=== PATIENT | male | born 1960 | race Caucasian/White ===

== ENCOUNTER 2017-06-26 09:24 | Day surgery (SDC) | payer OTHER ==
[~2017-06-26] VITALS: Ht 175.3 cm; Wt 101.2 kg
[~2017-06-26 09:24] MED LIST: ASPI81CH; ATOR10 PO; Aspir 8181 MG PO; CELE200 PO; CHOLESTYRAMINE; CYCL10 PO; FISH OIL 1,0001 EAC1; Fenofibrate134 MG PO; GABA300 PO; GLUCOSAMINE1000 MG; Garlic Oil1000 MG; LEVO-T137 MCG; LEVSOD100 PO; LEVSOD25 PO; LOVA20 PO; Motion Sickness25 M1 PO; NIAC500ER; Naprosyn500 MG PO; PANT40 PO; TRAM50 PO; VITAMIN D5000 UNI1; Zofran Odt8 MG SL
== END 2017-06-26 12:00 | disposition home or self-care (01) ==
LOC: ORSCSDS 09:24
PROVIDERS: Orthopaedic Surgery
PROC: 01N54ZZ Release Median Nerve, Percutaneous Endoscopic Approach (ICD-10-PCS; principal; 2017-06-26 11:00)
DX: G56.01 Carpal tunnel syndrome, right upper limb (principal); E03.9 Hypothyroidism, unspecified; E78.5 Hyperlipidemia, unspecified; Z87.891 Personal history of nicotine dependence; Z79.899 Other long term (current) drug therapy
CPT/HCPCS: J0171; J0690; J2250; J7120

== ENCOUNTER → 2023-11-18 | Outpatient (CLI) | payer OTHER ==
[~2023-11-18] MED LIST changes: +Cipro500 MG PO; +DOXA4; +Flagyl500 MG PO; -LEVO-T137 MCG; +LEVO-T137 MCG PO; +ONDANSETRON ODT 8MG; +PROM25 PO; +Roxicodone5 MG PO
[2023-11-18 17:03] LABS: Source, Urine Clean Catch
[2023-11-18 18:11] LABS: Appearance, Urine Clear (Clear); Bilirubin, Urine Neg (Neg); Blood, Urine Neg (Neg); Color, Urine Yellow (P-Yellow); Glucose Qualitative, Urine Neg (Neg); Ketones, Urine Neg (Neg); Leukocyte Esterase, Urine Neg (Neg); Nitrite, Urine Neg (Neg); Protein, Urine Neg (Neg); Urobilinogen, Urine NORM (Normal)
== END ==
LOC: LAB 17:00 → LAB SHORT 17:00
PROVIDERS: Family Medicine
DX: R82.81 Pyuria (principal)
CPT/HCPCS: 81003

== ENCOUNTER 2025-03-20 06:16 | Emergency (ER) | payer MEDICARE, OTHER ==
[~2025-03-20] VITALS: Ht 175.3 cm; Wt 99.8 kg
[2025-03-20 06:36] VITALS: BP 148/73
[2025-03-20 07:03] LABS: Source, Urine Clean Catch
[2025-03-20 07:12] LABS: BASOPHILS ABSOLUTE AUTO 0.05 K/mm3 (0.00-0.23); BASOPHILS PERCENT AUTO 1 % (0-2); EOSINOPHILS ABSOLUTE AUTO 0.03 K/mm3 (0.00-0.68); EOSINOPHILS PERCENT AUTO 1 % (0-6); Hematocrit 43.6 % (37.0-53.0); Hemoglobin 16.1 g/dL (13.5-17.5); IMMATURE GRAN ABSOLUTE AUTO 0.01 K/mm3 (0.00-0.10); IMMATURE GRAN PERCENT AUTO 0 % (0-1); LYMPHOCYTES ABSOLUTE AUTO 0.60 K/mm3 (0.84-5.20); LYMPHOCYTES PERCENT AUTO 10 % (21-46); MONOCYTES ABSOLUTE AUTO 0.54 K/mm3 (0.16-1.47); MONOCYTES PERCENT AUTO 9 % (4-13); Mean Corpuscular HGB Conc 36.9 g/dL (31.5-36.5); Mean Corpuscular Volume 89 fL (80-100); NEUTROPHILS ABSOLUTE AUTO 4.62 K/mm3 (1.96-9.15); NEUTROPHILS PERCENT AUTO 79 % (41-73); NRBC ABSOLUTE 0.00 K/mm3 (0.00-0.02); NRBC Auto 0.0 /100 WBC (0.0-0.2); Platelet Count 202 K/mm3 (150-400); RDW Coefficient Variation 12.0 % (11.7-14.2); RDW Standard Deviation 38.8 fL (35.1-46.3)
[2025-03-20 07:16] LABS: Bilirubin, Urine Neg (Neg); Color, Urine Yellow (P-Yellow); Glucose Qualitative, Urine Neg (Neg); Ketones, Urine Neg (Neg); Leukocyte Esterase, Urine Neg (Neg); Protein, Urine Neg (Neg); Specific Gravity, Urine 1.020 (1.003-1.022); Urobilinogen, Urine NORM (Normal)
[2025-03-20 07:24] LABS: Anion Gap 10.0 mmol/L (3-11); Blood Urea Nitrogen 12.0 mg/dL (8-24); CO2, Blood 23.0 mmol/L (21-32); Calcium, Blood 8.8 mg/dL (8.5-10.1); Chloride, Blood 107.0 mmol/L (98-108); Creatinine, Blood 0.78 mg/dL (0.60-1.20); Glucose, Blood 144.0 mg/dL (70-99); Potassium, Blood 3.6 mmol/L (3.5-5.5); Sodium, Blood 136.0 mmol/L (136-145)
== END 2025-03-20 08:22 | disposition home or self-care (01) ==
LOC: ER 06:16
PROVIDERS: Student in an Organized Health Care Education/Training Program
DX: N40.1 Benign prostatic hyperplasia with lower urinary tract symptoms (principal); R33.8 Other retention of urine; E03.9 Hypothyroidism, unspecified; E78.5 Hyperlipidemia, unspecified; Z79.899 Other long term (current) drug therapy; Z88.8 Allergy status to other drugs, medicaments and biological substances
CPT/HCPCS: 51702; 80048; 81003; 85025; 99283

== ENCOUNTER 2025-05-19 08:49 | Day surgery (SDC) | payer MEDICARE, OTHER ==
[~2025-05-19] VITALS: Ht 175.3 cm; Wt 95.4 kg
[2025-05-19] VITALS (22 sets, daily range): BP systolic 113–151; BP diastolic 63–83
[~2025-05-19 08:49] MED LIST changes: +MULTI-VITAMIN1 EAC2 PO
--- NOTE | 2025-05-19 09:20 | NUR ---
Ambulatory in Day Surgery. Catheter in place on admit. History, Chart, Medications and Allergies reviewed before start of procedure. Lungs clear T/O to Auscultation. Patient confirms NPO status and agrees with scheduled surgery. Pre-Op teaching done. Pt verbalizes understanding. Patient States Post-Procedure ride home has been arranged.
--- NOTE | 2025-05-19 10:17 | NUR ---
05/19/25 1017 Natasha Chan CONFIRMED AND REVIEWED H&P, MEDCICATIONS, ALLERGIES, MEDICAL HISTORY, RESPIRATORY HISTORY, VITAL SIGNS, 3-LEAD EKG, CONSENTS, AND PHYSICIAN ORDERS. PATIENT CONFIRMS NPO STATUS AND AGREES WITH SCHEDULED PROCEDURE. MONITOR INTACT WITH CONTINUOUS PULSE OXIMETRY, CAPNOGRAPHY, 3-LEAD EKG, INTERMITTENT BP. SUPPLEMENTAL O2 TO BE TITRATED THROUGHOUT PROCEDURE TO MAINTAIN O2 SATURATION ABOVE 90%. PATIENT DETERMINED TO BE ASA APPROPRIATE FOR PROPOFOL SEDATION PRIOR TO START OF PROCEDURE BY DR. CACERES
--- NOTE | 2025-05-19 10:42 | NUR ---
PT TO DAY SURGERY STEP DOWN FROM COLONOSCOPY. BEDSIDE REPORT RECEIVED. PT IS AWAKE, ALERT AND ORIENTED. HAS NO COMPLAINTS AT THIS TIME. REQUESTING PO FLUIDS.
--- NOTE | 2025-05-19 10:49 | NUR ---
TOLERATING PO FLUIDS WELL. Discharge instructions reviewed with patient. Patient verbalizes understanding. Copy given to patient to take home.
--- NOTE | 2025-05-19 10:58 | NUR ---
Patient up to Ambulate independently. Gait steady. Discharged via wheelchair to private car for ride home.
== END 2025-05-19 10:59 | disposition home or self-care (01) ==
LOC: ORSCMMR 08:49 → ORD 10:00 → ORSCMMR 10:59
PROVIDERS: Internal Medicine Gastroenterology
PROC: 0DBK8ZX Excision of Ascending Colon, Via Natural or Artificial Opening Endoscopic, Diagnostic (ICD-10-PCS; principal; 2025-05-19 10:00)
PROC: 0DBH8ZX Excision of Cecum, Via Natural or Artificial Opening Endoscopic, Diagnostic (ICD-10-PCS; principal; 2025-05-19 10:00)
PROC: 0DBM8ZX Excision of Descending Colon, Via Natural or Artificial Opening Endoscopic, Diagnostic (ICD-10-PCS; principal; 2025-05-19 10:00)
PROC: 0DBN8ZX Excision of Sigmoid Colon, Via Natural or Artificial Opening Endoscopic, Diagnostic (ICD-10-PCS; principal; 2025-05-19 10:00)
DX: Z12.11 Encounter for screening for malignant neoplasm of colon (principal); K63.5 Polyp of colon; D12.2 Benign neoplasm of ascending colon; D12.3 Benign neoplasm of transverse colon; Z86.0101 Personal history of adenomatous and serrated colon polyps; N40.1 Benign prostatic hyperplasia with lower urinary tract symptoms; E03.9 Hypothyroidism, unspecified; E78.00 Pure hypercholesterolemia, unspecified; Z79.82 Long term (current) use of aspirin; Z79.899 Other long term (current) drug therapy
CPT/HCPCS: 88305; J2704; J7120